=== PATIENT | male | born 1945 | race Hispanic/Latino ===

== ENCOUNTER 2018-05-10 22:28 | Emergency (ER) | payer MEDICARE, MEDICAID ==
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
[2018-05-11 01:28] VITALS: BP 134/84; O2SAT 99
== END 2018-05-11 00:54 | disposition home or self-care (01) ==
LOC: ER 22:28
DX: R45.851 Suicidal ideations (principal); F32.9 Major depressive disorder, single episode, unspecified

== ENCOUNTER 2018-05-17 03:37 | Emergency (ER) | payer MEDICARE, MEDICAID ==
[2018-05-17 04:10] VITALS: O2SAT 97
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
[2018-05-17] MEDS ORDERED: IBUPROFEN 200 MG TAB PO ONE (04:57)
[2018-05-17 05:14] VITALS: BP 123/78; TEMP 97.8
== END 2018-05-17 05:14 ==
LOC: ER 03:37
DX: S00.83XA Contusion of other part of head, initial encounter (principal); I25.2 Old myocardial infarction; J44.9 Chronic obstructive pulmonary disease, unspecified; I10 Essential (primary) hypertension; K21.9 Gastro-esophageal reflux disease without esophagitis; E11.9 Type 2 diabetes mellitus without complications; E07.9 Disorder of thyroid, unspecified; Y04.0XXA Assault by unarmed brawl or fight, initial encounter; Y92.129 Unspecified place in nursing home as the place of occurrence of the external cause

== ENCOUNTER 2018-05-18 19:48 | Emergency (ER) | payer MEDICARE, MEDICAID ==
[2018-05-18 20:05] VITALS: TEMP 98.2; O2SAT 100
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
[2018-05-18] MEDS ORDERED: ASPIRIN (CHEWABLE) 81 MG TAB PO ONE (21:39)
[2018-05-19] MEDS ORDERED: HYDROcodone 7.5MG/APAP 325MG 1 EA TAB PO ONE (01:50)
[2018-05-19 02:33] VITALS: BP 135/79
== END 2018-05-19 02:33 | disposition left against medical advice (07) ==
LOC: ER 19:48
DX: S00.03XA Contusion of scalp, initial encounter (principal); R51 Headache; R79.89 Other specified abnormal findings of blood chemistry; J44.9 Chronic obstructive pulmonary disease, unspecified; I25.2 Old myocardial infarction; I10 Essential (primary) hypertension; E11.9 Type 2 diabetes mellitus without complications; E07.9 Disorder of thyroid, unspecified; K21.9 Gastro-esophageal reflux disease without esophagitis; Z53.29 Procedure and treatment not carried out because of patient's decision for other reasons; W18.39XA Other fall on same level, initial encounter; Y92.129 Unspecified place in nursing home as the place of occurrence of the external cause

== ENCOUNTER 2018-08-09 10:53 | Emergency (ER) | payer MEDICARE, MEDICAID ==
[2018-08-09] MEDS ORDERED: ONDANSETRON INJ 4 MG/2 ML VIAL IV ONE (11:33)
[2018-08-09] MEDS ORDERED: SODIUM CHLORIDE 0.9% 1000ML 1,000 ML IVS PRN (11:33)
--- NOTE | 2018-08-09 11:36 | ED.PDOC ---
History of Present Illness - General Chief Complaint: Abdominal Pain Stated Complaint: RUQ pain Time Seen by Provider: 08/09/18 10:57 Information Source: patient, EMS Exam Limitations: physical impairment - cognitive impairment - History of Present Illness Initial Comments: patient comes in today with right lower quadrant abdominal pain since yesterday about 11 AM. Patient states he did have some loose stools and abdominal discomfort and he wondered if it wasn't significant at its that he ate yesterday. He has felt like he's a little bit hot but denies any definitive fever or chills. He has had some nausea and vomiting yesterday but no emesis this morning. Patient states he often has stomach issues when he is on medications. Off the medications he feels better. However, patient has given a different story to the ambulance as well as to the nurse and to the physician. Patient is a [facility] and does have known cognitive impairment. He is a very difficult historian and will often loses track of the question of the conversation that he starts. Patient denies any dysuria but often does have a loose stools. He doesn't know if he's had any blood in the urine or in his bowel movements. Patient is unsure about his past medical history and primary history was from his paperwork from the [facility]. Abdominal Pain Onset Location: RLQ Pain Radiation: no radiation Quality: moderate, sharpness, steady Timing/Duration: 24 hours, getting worse Improving Factors: nothing Worsening Factors: nothing Associated Symptoms: diarrhea, nausea/vomiting Review of Systems - Review of Systems Constitutional: States: fever. Denies: chills, weakness EENTM: States: eye pain - chronic photophobia has appointment with eye doctor. Denies: ear pain, nose pain, throat pain Respiratory: States: no symptoms reported. Denies: cough, short of breath, wheezing Cardiology: States: no symptoms reported. Denies: chest pain, palpitations, syncope Gastrointestinal/Abdominal: States: see HPI Genitourinary: States: no symptoms reported. Denies: dysuria, frequency, hematuria Musculoskeletal: States: no symptoms reported Skin: States: no symptoms reported Past Medical History (General) - Patient Medical History Hx Seizures: Yes Hx Stroke: Yes - Per patient Hx of COPD: Yes Hx Cardiac Disorders: Yes - [place] Hx Congestive Heart Failure: No Hx Hypertension: Yes Hx Thyroid Disease: Yes - hypothyroidism Hx Diabetes: No Hx Gastroesophageal Reflux: Yes Hx MRSA: Yes Surgical History: cholecystectomy, other - Vaccination History Hx Tetanus, Diphtheria Vaccination: No Hx Influenza Vaccination: Yes - 2018 Hx Pneumococcal Vaccination: Yes - Social History Hx Tobacco Use: No Hx Alcohol Use: No Hx Substance Use: No Hx Substance Use Treatment: No Hx Depression: No Hx Physical Abuse: No Hx Emotional Abuse: No - Activities of Daily Living Skilled Nursing/Assisted Living (if applicable):: [facility] Family Medical History - Family History Mother Family History: Unknown Living Status: Physical Exam - Physical Exam General Appearance: Alert, Comfortable, No apparent distress Eyes, Ears, Nose, Throat Exam: PERRL/EOMI, TMs normal, pharynx normal, other - 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 Lomotil given and results explained to patient. will send back to the NH with immodium and slow return to normal diet. Return to Er for increased pain, failure to improve over the next 24 hours. - Results/Orders Results/Orders: 08/09/18 11:33 Sodium Chloride 0.9% 1000ML [Ns 1000 ml] 1,000 ml IVS .QD URINALYSIS Stat Laboratory Results WBC 4.4 K/mm3 (4.8-10.8) L 08/09/18 11:33 RBC 4.46 M/mm3 (4.70-6.10) L 08/09/18 11:33 Hgb 13.2 gm/dL (14.0-18.0) L 08/09/18 11:33 Hct 39.5 % (42.0-52.0) L 08/09/18 11:33 MCV 88.6 fl (80.0-94.0) 08/09/18 11:33 MCH 29.5 pg (27.0-31.0) 08/09/18 11:33 MCHC 33.3 g/dL (33.0-37.0) 08/09/18 11:33 RDW 14.6 % (11.5-14.5) H 08/09/18 11:33 Plt Count 169 K/mm3 (130-400) 08/09/18 11:33 MPV 8.2 fl (7.40-10.4) 08/09/18 11:33 Absolute Neuts (auto) 1.90 K/uL (1.8-6.8) 08/09/18 11:33 Absolute Lymphs (auto) 1.30 K/uL (1.0-3.4) 08/09/18 11:33 Absolute Monos (auto) 0.20 K/uL (0.2-0.8) 08/09/18 11:33 Absolute Eos (auto) 0.90 K/uL (0.0-0.4) H 08/09/18 11:33 Absolute Basos (auto) 0.10 K/uL (0.0-0.1) 08/09/18 11:33 Neutrophils % 43.1 % (42.0-78.0) 08/09/18 11:33 Lymphocytes % 29.4 % (20.0-50.0) 08/09/18 11:33 Monocytes % 5.6 % (2.0-9.0) 08/09/18 11:33 Eosinophils % 19.3 % (1.0-5.0) H 08/09/18 11:33 Basophils % 2.6 % (0.0-2.0) H 08/09/18 11:33 Sodium 137 mmol/L (135-145) 08/09/18 11:33 Potassium 4.0 mmol/L (3.6-5.0) 08/09/18 11:33 Chloride 101 mmol/L (101-111) 08/09/18 11:33 Carbon Dioxide 29 mmol/L (21-31) 08/09/18 11:33 Anion Gap 11.0 (12-18) L 08/09/18 11:33 BUN 14 mg/dL (7-18) 08/09/18 11:33 Creatinine 1.07 mg/dL (0.6-1.3) 08/09/18 11:33 BUN/Creatinine Ratio 13.1 (10-20) 08/09/18 11:33 Random Glucose 156 mg/dL (70-105) H 08/09/18 11:33 Serum Osmolality 277.5 mOsm/L (275-295) 08/09/18 11:33 Lactic Acid 1.8 mmol/L (0.5-2.2) 08/09/18 11:48 Calcium 8.9 mg/dL (8.4-10.2) 08/09/18 11:33 Total Bilirubin 0.6 mg/dL (0.2-1.0) 08/09/18 11:33 AST 29 IU/L (10-42) 08/09/18 11:33 ALT 16 IU/L (10-60) 08/09/18 11:33 Alkaline Phosphatase 92 IU/L (42-121) 08/09/18 11:33 Serum Total Protein 7.8 gm/dL (6.4-8.2) 08/09/18 11:33 Albumin 4.0 g/dl (3.2-5.5) 08/09/18 11:33 Globulin 3.8 gm/dL (2.3-3.5) H 08/09/18 11:33 Albumin/Globulin Ratio 1.1 (1.1-1.9) 08/09/18 11:33 Patient Name: LEWIS MICHAEL Gender: Male Date of : 1945 Referring Physician: KAYLEIGH ROACH Organization: [facility] Accession Number: [id number] Requested Date: August 09, 2018 11:33 Report Status: Final Requested Procedure: 1 Procedure Description: Abdoment/Pelvis w/o Contrast Modality: CT Findings Reporting MD: Zander Jean MD: Not available Dictation Time: Mortuary Beautician: Not available It Systems Manager Date: EXAM: Abdoment/Pelvis w/o Contrast CLINICAL INDICATION: Right lower quadrant pain COMPARISON: There is no previous study for comparison. TECHNIQUE: The CT scan was done using contiguous axial 2.5 mm noncontrast sections through the abdomen and pelvis. This exam was performed according to our departmental dose-optimization program, which includes automated exposure control, adjustment of the mA and/or kV according to patient size and/or use of iterative reconstruction technique. FINDINGS: The visualized portions of the lung bases contain linear opacities consistent with scarring as well as a few calcified granulomas, but are otherwise clear. The gallbladder is surgically absent. The liver, spleen, and pancreas are unremarkable. The left kidney is absent. The right kidney is somewhat low-lying but otherwise unremarkable. No dilated loops of small bowel are seen. There is no free air, free fluid, or abscess. The appendix is normal. IMPRESSION: No evidence of an acute intra-abdominal process. Departure - Departure Clinical Impression: Gastroenteritis Disposition: Discharge to SNF Condition: Fair Departure Forms: ED Discharge - Pt. Copy, Patient Portal Self Enrollment Instructions: DI for Abdominal Pain-Adult Referrals: ISABEL CROADO [Primary Care Provider] - 1-2 Weeks Home Medications: Ambulatory Orders ALPRAZolam [Xanax] 0.5 mg PO BID 08/09/18 Acetaminophen [Tylenol] 1,000 mg PO Q8H PRN 08/09/18 Artificial Tear Solution [Soothe Xp/Xtra Protection] 2 jahaira OP QID 08/09/18 Aspirin [Baby Aspirin] 81 mg PO DAILY 08/09/18 Atorvastatin Calcium [Lipitor] 80 mg PO BEDTIME 08/09/18 Cyanocobalamin [Vitamin B-12] 1,000 mcg PO DAILY 08/09/18 Docusate Calcium [Surfak] 240 mg PO DAILY 08/09/18 Furosemide [Lasix] 20 mg PO MOWEFR 08/09/18 Hydroxyzine HCl 25 mg PO DAILY PRN 08/09/18 Lactobacillus [Acidophilus] 1 tab PO DAILY 08/09/18 Levothyroxine Sodium 75 mcg PO DAILY 08/09/18 Loratadine 10 mg PO DAILY 08/09/18 Magnesium Hydroxide [Milk Of Magnesia] 30 ml PO DAILY PRN 08/09/18 Potassium Chloride [Micro-K] 10 meq PO DAILY 08/09/18 Quetiapine Fumarate [Seroquel Xr] 150 mg PO BEDTIME 08/09/18 Ranolazine [Ranexa] 1,000 mg PO BID 08/09/18 Sennosides [Senna] 8.6 mg PO BEDTIME 08/09/18 Sertraline HCl 50 mg PO DAILY 08/09/18 Tramadol HCl 50 mg PO Q6H PRN 08/09/18 Trazodone HCl 100 mg PO BEDTIME 08/09/18 raNITIdine HCL [Zantac] 150 mg PO BID 08/09/18 Additional Instructions: patient has normal CT, CBC, CMP and most likely has AGE. monitor hydration and trial of immodium and Lomotil (given in ER) for cramping and diarrhea. Return to ER for increased pain, intractable emesis, failure to improve over the next 24 hours. Follow up with PCP on Saturday to recheck.
--- NOTE | 2018-08-09 13:02 | CT ---
EXAM: Abdoment/Pelvis w/o Contrast CLINICAL INDICATION: Right lower quadrant pain COMPARISON: There is no previous study for comparison. TECHNIQUE: The CT scan was done using contiguous axial 2.5 mm noncontrast sections through the abdomen and pelvis. This exam was performed according to our departmental dose-optimization program, which includes automated exposure control, adjustment of the mA and/or kV according to patient size and/or use of iterative reconstruction technique. FINDINGS: The visualized portions of the lung bases contain linear opacities consistent with scarring as well as a few calcified granulomas, but are otherwise clear. The gallbladder is surgically absent. The liver, spleen, and pancreas are unremarkable. The left kidney is absent. The right kidney is somewhat low-lying but otherwise unremarkable. No dilated loops of small bowel are seen. There is no free air, free fluid, or abscess. The appendix is normal. IMPRESSION: No evidence of an acute intra-abdominal process. Electronically signed by: Zander Jean MD 08/09/2018 1:01 PM [employer]
[2018-08-09] MEDS ORDERED: DIPHENOXYLATE HCL/ATROPINE 2.5 MG TAB PO ONE (13:21)
[2018-08-09 13:34] VITALS: TEMP 98; O2SAT 100
[2018-08-09 13:48] VITALS: BP 118/67
== END 2018-08-09 13:53 ==
LOC: ER 10:53
DX: K52.9 Noninfective gastroenteritis and colitis, unspecified (principal); J44.9 Chronic obstructive pulmonary disease, unspecified; I25.2 Old myocardial infarction; E03.9 Hypothyroidism, unspecified; I10 Essential (primary) hypertension; K21.9 Gastro-esophageal reflux disease without esophagitis; Z90.49 Acquired absence of other specified parts of digestive tract; Z86.73 Personal history of transient ischemic attack (TIA), and cerebral infarction without residual deficits
CPT/HCPCS: 36415; 74176; 80053; 81001; 83605; 85025; J2405; J7030

== ENCOUNTER 2018-09-21 10:08 | Emergency (ER) | payer MEDICARE, MEDICAID ==
[2018-09-21 10:21] VITALS: BP 119/71; TEMP 97.6
--- NOTE | 2018-09-21 10:38 | ED.PDOC ---
History of Present Illness - General Chief Complaint: Trauma Stated Complaint: Fall, Neck and R hand discomfort Time Seen by Provider: 09/21/18 10:27 Exam Limitations: no limitations - History of Present Illness Initial Comments: Kurt Sullivan 73 y/o male alf patient stated that he was walking [place] lives stated he got tired and sob then passed out then fell to the ground face down able to brace himself with his right hand then a resident saw him on the gorund was brought inside the [place] then ambulance was called.Stated dull headache right side of face and also on his neck. Timing/Duration: 1-3 hours Severity: moderate Improving Factors: nothing Worsening Factors: nothing Associated Symptoms: denies symptoms Allergies/Adverse Reactions: Allergies NO KNOWN ALLERGY Allergy (Verified 08/09/18 11:12) Causes a rash Home Medications: Ambulatory Orders ALPRAZolam [Xanax] 0.5 mg PO BID 08/09/18 Acetaminophen [Tylenol] 1,000 mg PO Q8H PRN 08/09/18 Artificial Tear Solution [Soothe Xp/Xtra Protection] 2 jahaira OP QID 08/09/18 Aspirin [Baby Aspirin] 81 mg PO DAILY 08/09/18 Atorvastatin Calcium [Lipitor] 80 mg PO BEDTIME 08/09/18 Cyanocobalamin [Vitamin B-12] 1,000 mcg PO DAILY 08/09/18 Docusate Calcium [Surfak] 240 mg PO DAILY 08/09/18 Furosemide [Lasix] 20 mg PO MOWEFR 08/09/18 Hydroxyzine HCl 25 mg PO DAILY PRN 08/09/18 Lactobacillus [Acidophilus] 1 tab PO DAILY 08/09/18 Levothyroxine Sodium 75 mcg PO DAILY 08/09/18 Loratadine 10 mg PO DAILY 08/09/18 Magnesium Hydroxide [Milk Of Magnesia] 30 ml PO DAILY PRN 08/09/18 Potassium Chloride [Micro-K] 10 meq PO DAILY 08/09/18 Quetiapine Fumarate [Seroquel Xr] 150 mg PO BEDTIME 08/09/18 Ranolazine [Ranexa] 1,000 mg PO BID 08/09/18 Sennosides [Senna] 8.6 mg PO BEDTIME 08/09/18 Sertraline HCl 50 mg PO DAILY 08/09/18 Tramadol HCl 50 mg PO Q6H PRN 08/09/18 Trazodone HCl 100 mg PO BEDTIME 08/09/18 raNITIdine HCL [Zantac] 150 mg PO BID 08/09/18 Review of Systems - Review of Systems Constitutional: States: no symptoms reported EENTM: States: no symptoms reported Respiratory: States: no symptoms reported Cardiology: States: no symptoms reported Gastrointestinal/Abdominal: States: no symptoms reported Genitourinary: States: no symptoms reported Musculoskeletal: States: see HPI Skin: States: see HPI Neurological: States: see HPI Endocrine: States: no symptoms reported Hematologic/Lymphatic: States: no symptoms reported Past Medical History (General) - Patient Medical History Hx Seizures: Yes Hx Stroke: Yes - Per patient Hx of COPD: Yes Hx Cardiac Disorders: Yes - [place] Hx Congestive Heart Failure: No Hx Hypertension: Yes Hx Thyroid Disease: Yes - hypothyroidism Hx Diabetes: No Hx Gastroesophageal Reflux: Yes 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 - Vaccination History Hx Tetanus, Diphtheria Vaccination: No Hx Influenza Vaccination: Yes - 2018 Hx Pneumococcal Vaccination: Yes - Social History Hx Tobacco Use: No Hx Alcohol Use: No Hx Substance Use: No Hx Substance Use Treatment: No Hx Depression: No Hx Physical Abuse: No Hx Emotional Abuse: No Family Medical History - Family History Mother Family History: Unknown Living Status: Physical Exam - Physical Exam General Appearance: Alert, Comfortable, No apparent distress Eye Exam: bilateral normal Ears, Nose, Throat: hearing grossly normal, normal ENT inspection, normal pharynx Neck: non-tender, full range of motion, supple, normal inspection, other - on c- collar Respiratory: chest non-tender, lungs clear, normal breath sounds, no respiratory distress Cardiovascular/Chest: normal peripheral pulses, regular rate, rhythm, no murmur Peripheral Pulses: radial,right: 2+ Gastrointestinal/Abdominal: normal bowel sounds, non tender, soft, no organomegaly Back Exam: no CVA tenderness, no vertebral tenderness Extremity: normal range of motion, non-tender, no pedal edema, no calf tenderness, pelvis stable, other - able toget out of exam bed and walk go to bathroom w/o assistance Neurologic: no motor/sensory deficits, alert, oriented x 3 Skin Exam: normal color, warm/dry, other - soft tissue swelling with superficial laceration right cheek Progress - Progress Progress: 09/21/18 11:13 Vital Signs - 8 hr 09/21/18 10:10 Temperature 97.6 F Pulse Rate [ 65 Right Radial] Respiratory 20 Rate Blood Pressure 119/71 [Right Arm] O2 Sat by Pulse 96 Oximetry - Results/Orders Results/Orders: 09/21/18 10:34 IV Care:Saline Lock per Protoc QSHIFT URINALYSIS Stat Laboratory Results - last 24 hr 09/21/18 10:54 WBC 4.1 L RBC 4.34 L Hgb 12.7 L Hct 39.0 L MCV 89.9 MCH 29.2 MCHC 32.6 L RDW 13.9 Plt Count 155 MPV 7.7 Absolute Neuts (auto) 2.50 Absolute Lymphs (auto) 0.80 L Absolute Monos (auto) 0.30 Absolute Eos (auto) 0.60 H Absolute Basos (auto) 0.10 Neutrophils % 59.5 Lymphocytes % 18.8 L Monocytes % 7.0 Eosinophils % 13.4 H Basophils % 1.3 PT 11.0 H INR 1.10 PTT (SP) 25.5 Sodium 138 Potassium 3.8 Chloride 103 Carbon Dioxide 22 Anion Gap 16.8 BUN 12 Creatinine 1.04 BUN/Creatinine Ratio 11.5 Random Glucose 102 Serum Osmolality 275.6 Calcium 8.9 Magnesium 2.0 Total Bilirubin 0.6 Direct Bilirubin 0.2 Indirect Bilirubin 0.4 AST 23 ALT 10 Alkaline Phosphatase 76 Creatine Kinase 119 CK-MB (CK-2) 1.8 CK-MB (CK-2) % Not Reportable Troponin I 0.04 Serum Total Protein 8.1 Albumin 4.2 - EKG/XRAY/CT XRAY: chest - no acute abnormalities CT Ordered: Yes - head/c-spine no acute fracture or intracranial bleeding Departure - Departure Clinical Impression: Neck pain Fall at alf Qualifiers: Encounter type: initial encounter Qualified Code(s): W19.XXXA - Unspecified fall, initial encounter Contusion of face Qualifiers: Encounter type: initial encounter Qualified Code(s): S00.83XA - Contusion of other part of head, initial encounter Syncope Qualifiers: Syncope type: unspecified Qualified Code(s): R55 - Syncope and collapse Time of Disposition: 12:08 Disposition: Discharge to SNF Condition: Fair Departure Forms: ED Discharge - Pt. Copy, Patient Portal Self Enrollment Instructions: DI for Trauma, Minor Head Injury (DC), Contusion (DC) Referrals: ISABEL CORADO [Primary Care Provider] - 1-2 Weeks Home Medications: Ambulatory Orders ALPRAZolam [Xanax] 0.5 mg PO BID 08/09/18 Acetaminophen [Tylenol] 1,000 mg PO Q8H PRN 08/09/18 Artificial Tear Solution [Soothe Xp/Xtra Protection] 2 jahaira OP QID 08/09/18 Aspirin [Baby Aspirin] 81 mg PO DAILY 08/09/18 Atorvastatin Calcium [Lipitor] 80 mg PO BEDTIME 08/09/18 Cyanocobalamin [Vitamin B-12] 1,000 mcg PO DAILY 08/09/18 Docusate Calcium [Surfak] 240 mg PO DAILY 08/09/18 Furosemide [Lasix] 20 mg PO MOWEFR 08/09/18 Hydroxyzine HCl 25 mg PO DAILY PRN 08/09/18 Lactobacillus [Acidophilus] 1 tab PO DAILY 08/09/18 Levothyroxine Sodium 75 mcg PO DAILY 08/09/18 Loratadine 10 mg PO DAILY 08/09/18 Magnesium Hydroxide [Milk Of Magnesia] 30 ml PO DAILY PRN 08/09/18 Potassium Chloride [Micro-K] 10 meq PO DAILY 08/09/18 Quetiapine Fumarate [Seroquel Xr] 150 mg PO BEDTIME 08/09/18 Ranolazine [Ranexa] 1,000 mg PO BID 08/09/18 Sennosides [Senna] 8.6 mg PO BEDTIME 08/09/18 Sertraline HCl 50 mg PO DAILY 08/09/18 Tramadol HCl 50 mg PO Q6H PRN 08/09/18 Trazodone HCl 100 mg PO BEDTIME 08/09/18 raNITIdine HCL [Zantac] 150 mg PO BID 08/09/18 Additional Instructions: return to ER as needed;Tylenol 500 mg every 6 hours for pain
--- NOTE | 2018-09-21 11:11 | RAD ---
EXAM DESCRIPTION: Hand,Right 3 Views CLINICAL HISTORY: fall COMPARISON: None FINDINGS: 3 view(s) submitted. No fracture or dislocation is identified. Bone marrow attenuation is unremarkable. No radiopaque foreign body is identified. IMPRESSION: No acute fracture or dislocation. Electronically signed by: Cory Carlos 09/21/2018 11:09 AM [facility]
--- NOTE | 2018-09-21 11:11 | RAD ---
EXAM DESCRIPTION: Chest,1 View CLINICAL HISTORY: fall COMPARISON: None. FINDINGS: Cardiac silhouette is within normal limits. There is no focal parenchymal or pleural disease. Visualized osseous structures are within normal limits. IMPRESSION: No evidence of acute cardiopulmonary disease. Electronically signed by: Cory Carlos 09/21/2018 11:10 AM MANAGER SUPPL[employer] CH[employer]
--- NOTE | 2018-09-21 11:27 | CT ---
EXAM DESCRIPTION: CT CERVICAL SPINE CLINICAL HISTORY: fall COMPARISON: None Available. TECHNIQUE: Contiguous axial images of the cervical spine were obtained followed by reconstruction images.This exam was performed according to our departmental dose-optimization program, which includes automated exposure control, adjustment of the mA and/or kV according to patient size and/or use of iterative reconstruction technique. FINDINGS: There is moderate mucosal thickening in the paranasal sinuses. There is chronic appearing dysmorphology of the right mandibular ramus and right mandibular condyle. There is fragmentation of the right mandibular condylar head that may be chronic. If there is acute pain, consider a single minimally diastatic fracture of the right mandibular condylar head, anterior aspect. There is no acute cervical spine fracture or subluxation. The prevertebral soft tissues are within normal limits. 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 No acute cervical spine fracture or subluxation. Electronically signed by: Cory Carlos 09/21/2018 11:26 AM [facility]
--- NOTE | 2018-09-21 11:34 | CT ---
EXAM DESCRIPTION: Head CLINICAL HISTORY: 73 years Male fall COMPARISON: May 18, 2018. TECHNIQUE: Noncontrast axial scans of the brain were obtained. Sagittal and coronal reformatted images were performed. This exam was performed according to our departmental dose-optimization program, which includes automated exposure control, adjustment of the mA and/or kV according to patient size and/or use of iterative reconstruction technique. FINDINGS: There is no evidence of acute intracranial hemorrhage, extracerebral fluid collection, hydrocephalus, midline shift, obvious mass effect, or major territorial infarction. Note is again made of prominence of cortical sulci in the upper convexity, a tiny hypodensity adjacent to the frontal horn of the left lateral ventricle consistent with an old ischemic focus, and a slightly prominent cisterna magna. Tompkins-white distinction is preserved. Vascular calcifications are noted at the base of the brain. The above findings are essentially stable. The bony calvarium appears intact. There may be slight right periorbital soft tissue swelling. There has been interval development of diffuse mucosal thickening in the right maxillary antrum and slight partial opacification of right ethmoid air cells and clearing of previously noted slight mucosal thickening in the left maxillary antrum. The frontal sinuses and the left sphenoid sinus appear hypoplastic or undeveloped. IMPRESSION: No evidence of acute intracranial hemorrhage. Right maxillary sinusitis and other minor findings and chronic changes as described above. Electronically signed by: Rah Kurtz MD 09/21/2018 11:33 AM FARM MACHINERY ASSEMBLER
[2018-09-21 13:07] VITALS: O2SAT 97
== END 2018-09-21 12:45 ==
LOC: ER 10:08
DX: R55 Syncope and collapse (principal); S00.83XA Contusion of other part of head, initial encounter; M54.2 Cervicalgia; R51 Headache; E03.9 Hypothyroidism, unspecified; K21.9 Gastro-esophageal reflux disease without esophagitis; I10 Essential (primary) hypertension; R56.9 Unspecified convulsions; J44.9 Chronic obstructive pulmonary disease, unspecified; I25.2 Old myocardial infarction; W18.39XA Other fall on same level, initial encounter; Y92.129 Unspecified place in nursing home as the place of occurrence of the external cause; Z86.73 Personal history of transient ischemic attack (TIA), and cerebral infarction without residual deficits; Z79.899 Other long term (current) drug therapy; Z79.82 Long term (current) use of aspirin

== ENCOUNTER → 2018-10-21 | Outpatient (CLI) | payer MEDICARE, MEDICAID ==
--- NOTE | 2018-10-21 15:14 | RAD ---
EXAM DESCRIPTION: Hand,Right 3 Views CLINICAL HISTORY: BRUISING AND SWELLING COMPARISON: Radiographs of the right hand dated 09/21/2018. TECHNIQUE: AP, LATERAL, AND OBLIQUE FINDINGS: The visualized bones appear poorly mineralized. No acute fracture or dislocation. The soft tissues appear grossly unremarkable. Mild degenerative changes are identified in the first carpometacarpal and metacarpophalangeal joints. IMPRESSION: Mild degenerative changes are identified in the first carpometacarpal and metacarpophalangeal joints. No acute traumatic abnormality. Electronically signed by: Sierra Ferro MD 10/21/2018 3:[address] [facility]
== END ==
LOC: RAD 10:41
PROVIDERS: ATTEND Internal Medicine
DX: M79.89 Other specified soft tissue disorders (principal); S60.221A Contusion of right hand, initial encounter

== ENCOUNTER 2018-12-02 17:27 | Emergency (ER) | payer MEDICARE, MEDICAID ==
[2018-12-02] MEDS ORDERED: FLUCONAZOLE 100 MG TAB PO ONE (17:46)
[2018-12-02] MEDS ORDERED: predniSONE 20 MG TAB PO ONE (17:46)
--- NOTE | 2018-12-02 17:51 | ED.PDOC ---
History of Present Illness - General Time Seen by Provider: 12/02/18 17:46 Source: patient Exam Limitations: no limitations - History of Present Illness Initial Comments: the patient is a 73-year-old male presenting to the emergency room secondary to oral pain that started Saturday he reports after drinking some liquid. He is not sure what it was but it was not hot. He has no known food allergies. He reports it started immediately. It caused him immediate mouth pain and some pain down his esophagus. He has been taking some oral statin which seems to irritate the problem. No shortness of breath and no chest pain otherwise. The patient does have a small ulcer to the lower lip and has an excoriation to the roof of the mouthon the left about the size of a dime. It is fairly superficial. The patient is quite anxious. He does have very poor dentition. The patient keeps his unchanged on during the exam. Timing/Duration: other - 3 days Severity: moderate Improving Factors: nothing Worsening Factors: nothing Associated Symptoms: denies symptoms Allergies/Adverse Reactions: Allergies NO KNOWN ALLERGY Allergy (Verified 08/09/18 11:12) Causes a rash Home Medications: Ambulatory Orders ALPRAZolam [Xanax] 0.5 mg PO BID 08/09/18 Acetaminophen [Tylenol] 1,000 mg PO Q8H PRN 08/09/18 Artificial Tear Solution [Soothe Xp/Xtra Protection] 2 jahaira OP QID 08/09/18 Aspirin [Baby Aspirin] 81 mg PO DAILY 08/09/18 Atorvastatin Calcium [Lipitor] 80 mg PO BEDTIME 08/09/18 Cyanocobalamin [Vitamin B-12] 1,000 mcg PO DAILY 08/09/18 Docusate Calcium [Surfak] 240 mg PO DAILY 08/09/18 Furosemide [Lasix] 20 mg PO MOWEFR 08/09/18 Hydroxyzine HCl 25 mg PO DAILY PRN 08/09/18 Lactobacillus [Acidophilus] 1 tab PO DAILY 08/09/18 Levothyroxine Sodium 75 mcg PO DAILY 08/09/18 Loratadine 10 mg PO DAILY 08/09/18 Magnesium Hydroxide [Milk Of Magnesia] 30 ml PO DAILY PRN 08/09/18 Potassium Chloride [Micro-K] 10 meq PO DAILY 08/09/18 Quetiapine Fumarate [Seroquel Xr] 150 mg PO BEDTIME 08/09/18 Ranolazine [Ranexa] 1,000 mg PO BID 08/09/18 Sennosides [Senna] 8.6 mg PO BEDTIME 08/09/18 Sertraline HCl 50 mg PO DAILY 08/09/18 Tramadol HCl 50 mg PO Q6H PRN 08/09/18 Trazodone HCl 100 mg PO BEDTIME 08/09/18 raNITIdine HCL [Zantac] 150 mg PO BID 08/09/18 Famotidine [Pepcid Tab] 20 mg PO BID #14 tab 12/02/18 Fluconazole [Diflucan Tab] 100 mg PO ONCE #1 tab 12/02/18 Review of Systems - Review of Systems Constitutional: States: no symptoms reported EENTM: States: see HPI Respiratory: States: no symptoms reported Cardiology: States: no symptoms reported Gastrointestinal/Abdominal: States: see HPI - heartburn Genitourinary: States: no symptoms reported Musculoskeletal: States: no symptoms reported Skin: States: no symptoms reported Neurological: States: anxiety Endocrine: States: no symptoms reported All other Systems: No Change from Baseline Past Medical History (General) - Patient Medical History Hx Seizures: Yes Hx Stroke: Yes - Per patient Hx of COPD: Yes Hx Cardiac Disorders: Yes - [place] Hx Congestive Heart Failure: No Hx Hypertension: Yes Hx Thyroid Disease: Yes - hypothyroidism Hx Diabetes: No Hx Gastroesophageal Reflux: Yes Hx MRSA: Yes - Vaccination History Hx Tetanus, Diphtheria Vaccination: No Hx Influenza Vaccination: Yes - 2018 Hx Pneumococcal Vaccination: Yes - Social History Hx Tobacco Use: No Hx Alcohol Use: No Hx Substance Use: No Hx Substance Use Treatment: No Hx Depression: No Hx Physical Abuse: No Hx Emotional Abuse: No Family Medical History - Family History Mother Family History: Unknown Living Status: Physical Exam - Physical Exam General Appearance: Alert, Anxious, No apparent distress Eye Exam: bilateral other - the patient uses sunshades on during the exam. He does not want to remove them. Ears, Nose, Throat: hearing grossly normal, other - see history of present illness. No evidence of any abscess. No deep ulcerations. No obvious blistering. Neck: full range of motion, supple Respiratory: no respiratory distress, no accessory muscle use Cardiovascular/Chest: other - egular rate Peripheral Pulses: radial,right: 2+ Gastrointestinal/Abdominal: non tender, soft Rectal Exam: deferred Extremity: pedal edema - chronic, other - chronic abnormality of left upper extremity. Otherwise normal chronic range of motion. 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 He has already been put on a nystatin but this seems to increase the pain when he takes it. We will discontinue the nystatin and place the patient on Diflucan 1 tablet today and 1 tablet 2 days from now. It is possible the patient may have had a localized allergic type reaction to something that he ingested on Saturday. The patient is being given a dose of prednisone here for that possibility. Additionally the patient may benefit from the use of Chloraseptic as needed for symptomatic relief. It is possible that he may have a viral stomatitis or esophagitis that will simply have to pass on its own. He needs to be kept well hydrated. Continue to monitor the patient's intake as well as the shallow ulceration on the roof of the mouth to make sure that it is healing. additionally the patient can take Pepcid twice daily for the next week to reduce any persistent esophageal irritation. Follow up with facility doctor in a couple of days. ER warnings were given. Departure - Departure Clinical Impression: Stomatitis and mucositis, unspecified, Esophagitis, acute Disposition: Discharge to SNF Condition: Fair Instructions: Mouth Sores (DC) Diet: bland diet Activity: increase activity as tolerated Referrals: ISABEL CORADO [Primary Care Provider] - 1-2 Days Prescriptions: Famotidine [Pepcid Tab] 20 mg PO BID #14 tab Fluconazole [Diflucan Tab] 100 mg PO ONCE #1 tab Home Medications: Ambulatory Orders ALPRAZolam [Xanax] 0.5 mg PO BID 08/09/18 Acetaminophen [Tylenol] 1,000 mg PO Q8H PRN 08/09/18 Artificial Tear Solution [Soothe Xp/Xtra Protection] 2 jahaira OP QID 08/09/18 Aspirin [Baby Aspirin] 81 mg PO DAILY 08/09/18 Atorvastatin Calcium [Lipitor] 80 mg PO BEDTIME 08/09/18 Cyanocobalamin [Vitamin B-12] 1,000 mcg PO DAILY 08/09/18 Docusate Calcium [Surfak] 240 mg PO DAILY 08/09/18 Furosemide [Lasix] 20 mg PO MOWEFR 08/09/18 Hydroxyzine HCl 25 mg PO DAILY PRN 08/09/18 Lactobacillus [Acidophilus] 1 tab PO DAILY 08/09/18 Levothyroxine Sodium 75 mcg PO DAILY 08/09/18 Loratadine 10 mg PO DAILY 08/09/18 Magnesium Hydroxide [Milk Of Magnesia] 30 ml PO DAILY PRN 08/09/18 Potassium Chloride [Micro-K] 10 meq PO DAILY 08/09/18 Quetiapine Fumarate [Seroquel Xr] 150 mg PO BEDTIME 08/09/18 Ranolazine [Ranexa] 1,000 mg PO BID 08/09/18 Sennosides [Senna] 8.6 mg PO BEDTIME 08/09/18 Sertraline HCl 50 mg PO DAILY 08/09/18 Tramadol HCl 50 mg PO Q6H PRN 08/09/18 Trazodone HCl 100 mg PO BEDTIME 08/09/18 raNITIdine HCL [Zantac] 150 mg PO BID 08/09/18 Famotidine [Pepcid Tab] 20 mg PO BID #14 tab 12/02/18 Fluconazole [Diflucan Tab] 100 mg PO ONCE #1 tab 12/02/18 Additional Instructions: the patient is a 73-year-old male presents to emergency room with complaint of mouth pain and esophageal pain with swallowing. He has already been put on a nystatin but this seems to increase the pain when he takes it. We will discontinue the nystatin and place the patient on Diflucan 1 tablet today and 1 tablet 2 days from now. It is possible the patient may have had a localized allergic type reaction to something that he ingested on Saturday. The patient is being given a dose of prednisone here for that possibility. Additionally the patient may benefit from the use of Chloraseptic as needed for symptomatic relief. It is possible that he may have a viral stomatitis or esophagitis that will simply have to pass on its own. He needs to be kept well hydrated. Continue to monitor the patient's intake as well as the shallow ulceration on the roof of the mouth to make sure that it is healing. additionally the patient can take Pepcid twice daily for the next week to reduce any persistent esophageal irritation. Follow up with facility doctor in a couple of days. ER warnings were given.
[2018-12-02 18:13] VITALS: TEMP 98.3; O2SAT 99
[2018-12-02 18:17] VITALS: BP 153/75
== END 2018-12-02 20:04 ==
LOC: ER 17:27
DX: K12.1 Other forms of stomatitis (principal); K12.30 Oral mucositis (ulcerative), unspecified; K20.9 Esophagitis, unspecified; J44.9 Chronic obstructive pulmonary disease, unspecified; I25.2 Old myocardial infarction; I10 Essential (primary) hypertension; E03.9 Hypothyroidism, unspecified; K21.9 Gastro-esophageal reflux disease without esophagitis; R56.9 Unspecified convulsions; Z86.73 Personal history of transient ischemic attack (TIA), and cerebral infarction without residual deficits; Z79.899 Other long term (current) drug therapy; Z79.82 Long term (current) use of aspirin

== ENCOUNTER → 2019-05-18 | Outpatient (CLI) | payer MEDICARE, MEDICAID | LOC: GOCC 16:26 | PROVIDERS: ATTEND Internal Medicine | DX: N39.0 Urinary tract infection, site not specified (principal) ==